=== PATIENT | male | born 1985 | race Caucasian/White ===

== ENCOUNTER 2016-09-11 13:17 | Emergency (ER) ==
[2016-09-11 13:27] VITALS: BP 147/82; TEMP 98.4; BMI 21.1
[2016-09-11] MEDS ORDERED: DILAUDID 1 MG/ML SYRINGE IM STA (13:38)
[2016-09-11] MEDS ORDERED: ZOFRAN 4 MG/2 ML IM STA (13:41)
[2016-09-11 13:58] LABS: BASOPHILS # (AUTO) 0.1 K/uL (0-0.2); BASOPHILS % (AUTO) 0.7 % (0.0-3.0); EOSINOPHILS % (AUTO) 0.1 % (0.0-7.0); HEMATOCRIT 50.6 % (42.0-52.0); HEMOGLOBIN 18.3 g/dl (14.0-18.0); IMMATURE GRANULOCYTE % (AUTO) 0.3 % (0.0-5.0); LYMPHOCYTES % (AUTO) 12.9 (10.0-50.0); MEAN CORPUSCULAR HEMOGLOBIN 31.1 pg (27.0-31.0); MEAN CORPUSCULAR HGB CONC 36.2 (31.8-35.4); MEAN CORPUSCULAR VOLUME 86.1 fl (80.0-94.0); MONOCYTES # (AUTO) 0.2 K/uL (0.4-2.0); MONOCYTES % (AUTO) 3.2 (0-10); NEUTROPHILS # (AUTO) 6.1 K/ul (2.0-6.9); NEUTROPHILS % (AUTO) 82.8; PLATELET COUNT 292 10^3/uL (140-440); RED BLOOD COUNT 5.88 10^6/ul (4.70-6.10); WHITE BLOOD COUNT 7.42 K/ul (4.2-10.2)
[2016-09-11 14:16] LABS: ALBUMIN 4.6 g/dL (3.4-5.0); ALBUMIN/GLOBULIN RATIO 1.44; ANION GAP 20.1; BILIRUBIN,TOTAL 1.34 mg/dL (0.00-1.20); BUN/CREATININE RATIO 8.08; CREATININE 0.99 mg/dL (0.60-1.10); POTASSIUM 4.1 mmol/L (3.5-5.1); TOTAL PROTEIN 7.8 g/dL (6.4-8.2)
--- NOTE | 2016-09-11 14:31 | DI ---
EXAM: Chest two view, frontal and lateral views. HISTORY: Cough. COMPARISON: None available. FINDINGS: The heart size is normal. There is no pulmonary vascular congestion. The lungs are miguel a r. No pleural effusion or pneumothorax is seen. No acute osseous abnormality identified. IMPRESSION: No acute cardiopulmonary process.
--- NOTE | 2016-09-11 14:41 | CT ---
EXAM: CT Abdomen without contrast. CT Pelvis without contrast. HISTORY: Epigastric pain. Nausea and vomiting. COMPARISON: None available. TECHNIQUE: Multiple axial images of the abdomen and pelvis were obtained without intravenous contra st. Images were reformatted in the coronal plane. FINDINGS: Please note that evaluation of the abdominal and pelvic structures is limited due to lack of intravenous contrast. The lung bases are clear. No acute osseous abnormality identified. Focal fatty infiltration seen in the medial left hepatic lobe. The gallbladder, pancreas, spleen, a drenal glands, kidneys demonstrate normal contour. No calcified renal stones or hydronephrosis dete cted. The bowel is normal in course and caliber without evidence for obstruction or inflammatory process. The appendix is normal. Urinary bladder is unremarkable. No free fluid or free air identified. N onenlarged mesenteric lymph nodes are present. There is a tiny fat-containing umbilical hernia. Flores bcutaneous air in the left gluteal region likely due to subcutaneous injection. IMPRESSION: No acute abnormality in the abdomen or pelvis.
[2016-09-11 15:01] LABS: BILIRUBIN,URINE Negative (NEGATIVE); KETONES,URINE 2+ (NEGATIVE); LEUKOCYTE ESTERASE ,URINE Negative (NEGATIVE); NITRITE,URINE Negative (NEGATIVE); PH,URINE 8.5 (5-9); PROTEIN,URINE 1+ (NEGATIVE); URINE, BLOOD Negative (NEGATIVE)
[2016-09-11 15:06] LABS: ADD URINE MICROSCOPIC YES
[2016-09-11 15:10] LABS: BACTERIA,URINE 1+ (NOT PRESENT)
[2016-09-11 15:12] LABS: COCAIN SCREEN,URINE NEGATIVE (NEGATIVE)
--- NOTE | 2016-09-11 15:31 | ED.PDOC ---
General ED Provider: Dr. [address] Chief Complaint: Abdominal Pain Stated Complaint: abdominal pain Time Seen by Physician: 13:20 (seen with nursing staff admitts to drinking alcohol on daily basis heavily) Mode of Arrival: Walk-In Information Source: Patient Exam Limitations: No limitations Primary Care Provider: MARNIE VINSON Nursing and Triage Documentation Reviewed and Agree: Yes GI Complaint Exam - Abdominal Pain Complaint/Exam Duration: since AM TODAY Symptoms Are: Still present Timing: Constant Initial Severity: Moderate Location of Pain: Epigastric Character: Reports: Cramping Aggravating: Reports: None Alleviating: Reports: None Associated Signs and Symptoms: Reports: Nausea. Denies: Diaphoresis, Fever, Cough, Chest pain, Dizziness, Back pain, Constipation, Blood in stool, Dysuria, Urinary frequency, Decreased urine output, Decreased appetite, Discharge, Vomiting, Diarrhea, Decreased activity AAA Risk Factors: Reports: None Cardiac Risk Factors: Reports: None Testicular Torsion Risk Factors: Reports: None Surgical Obstruction Risk Factors: Reports: None Related Surgical History: Reports: None Abdominal Findings: Present: None Differential Diagnoses: Bowel Obstruction, Constipation, Gastroenteritis, Pancreatitis Review of Systems - Review Of Systems Constitutional: Reports: No symptoms Eyes: Reports: No symptoms Ears, Nose, Mouth, Throat: Reports: No symptoms Respiratory: Reports: No symptoms Cardiac: Reports: No symptoms GI: Reports: Abdominal pain, Nausea : Reports: No symptoms Musculoskeletal: Reports: No symptoms Skin: Reports: No symptoms Neurological: Reports: No symptoms Endocrine: Reports: No symptoms Hematologic/Lymphatic: Reports: No symptoms All Other Systems: Reviewed and Negative Past Medical History - Past Medical History Previously Healthy: Yes Endocrine: Reports: None Cardiovascular: Reports: None Respiratory: Reports: None Hematological: Reports: None Gastrointestinal: Reports: None Genitourinary: Reports: None Neuro/Psych: Reports: None Musculoskeletal: Reports: None Cancer: Reports: None - Surgical History General Surgical History: Reports: None - Family History Family History: Reports: None - Social History Smoking Status: Former smoker Hx Substance Use: Yes Alcohol Screening: Heavy - Immunizations Tetanus Shot up to Date: No Physical Exam - Physical Exam Appearance: Well-appearing, No pain distress, Well-nourished Eyes: AUBREY, EOMI, Conjunctiva clear ENT: Ears normal, Nose normal, Oropharynx normal Respiratory: Airway patent, Breath sounds clear, Breath sounds equal, Respirations nonlabored Cardiovascular: RRR, Pulses normal, No rub, No murmur GI/: Soft, Nontender, No masses, Bowel sounds normal, No Organomegaly Musculoskeletal: Normal strength, ROM intact, No edema, No calf tenderness Skin: Warm, Dry, Normal color Neurological: Sensation intact, Motor intact, Reflexes intact, Cranial nerves intact, Alert, Oriented Psychiatric: Affect appropriate, Mood appropriate Interpretation - Radiology Interpretation Radiology Interpretation By: ED Physician Radiology Results: Negative Exam Interpreted: CXR Re-Evaluation - Re-Evaluation Time of Re-Evaluation: 15:00 Status: Improved Vital Signs Stable: Yes Pain Level: 0 Appearance: NAD Lungs: Clear Skin: Warm and Dry Neuro: Alert and Oriented X3 CV: RRR - Re-Evaluation Time of Re-Evaluation: 03:45 Status: Improved Vital Signs Stable: Yes Pain Level: 0 Appearance: NAD Skin: Warm and Dry Neuro: Alert and Oriented X3 CV: RRR Critical Care Note - Critical Care Note Total Time (mins): 0 Course - Course Hematology/Chemistry: 09/11/16 13:50 09/11/16 13:50 Orders, Labs, Meds: Lab Review 09/11/16 09/11/16 13:50 14:30 WBC 7.42 RBC 5.88 Hgb 18.3 H Hct 50.6 MCV 86.1 MCH 31.1 H MCHC 36.2 H RDW Coeff of Maylin 12.4 Plt Count 292 Immature Gran % (Auto) 0.3 Neut % (Auto) 82.8 Lymph % (Auto) 12.9 Coke % (Auto) 3.2 Eos % (Auto) 0.1 Baso % (Auto) 0.7 Immature Gran # (Auto) 0.0 Neut # 6.1 Lymph # 1.0 Coke # 0.2 L Eos # 0.0 Baso # 0.1 Sodium 141 Potassium 4.1 Chloride 98 Carbon Dioxide 27 Anion Gap 20.1 BUN 8 Creatinine 0.99 Estimated GFR (MDRD) 89.00 BUN/Creatinine Ratio 8.08 Glucose 105 H Calcium 10.0 Total Bilirubin 1.34 H AST 27 ALT 21 Alkaline Phosphatase 65 Total Protein 7.8 Albumin 4.6 Globulin 3.2 Albumin/Globulin Ratio 1.44 Amylase 41 Lipase 24 Urine Color Yellow Urine Clarity Cloudy Urine pH 8.5 Ur Specific [place] 1.015 Urine Protein 1+ Urine Glucose (UA) Negative Urine Ketones 2+ Urine Blood Negative Urine Nitrite Negative Urine Bilirubin Negative Urine Urobilinogen 4.0 Ur Leukocyte Esterase Negative Urine Microscopic RBC 0-2 Urine Microscopic WBC 0-2 Ur Squamous Epith Cells 0-2 Amorphous Sediment 2+ Urine Bacteria 1+ Urine Opiates Screen Negative Ur Oxycodone Screen Negative Urine Methadone Screen Negative Ur Propoxyphene Screen Negative Ur Barbiturates Screen Negative U Tricyclic Antidepress Negative Ur Phencyclidine Scrn Negative Ur Amphetamine Screen Negative U Methamphetamines Scrn Negative U Benzodiazepines Scrn Negative Urine Cocaine Screen Negative U Cannabinoids Screen Positive Plasma/Serum Alcohol < 10.0 Orders Category Date Time Status AMYLASE Stat LAB 09/11/16 13:50 Completed CBC W/ AUTO DIFF Stat LAB 09/11/16 13:50 Completed COMPREHENSIVE METABOLIC PANEL Stat LAB 09/11/16 13:50 Completed ETOH LEVEL [BLOOD ALCOHOL] Stat LAB 09/11/16 13:50 Completed LIPASE Stat LAB 09/11/16 13:50 Completed URINALYSIS C & S IF INDICATED Stat LAB 09/11/16 14:30 Completed URINE CULTURE Routine LAB 09/11/16 15:11 Received URINE DRUG SCREEN (RAPID FOR ED) [DRUG SCREEN, URINE, LAB 09/11/16 14:30 Completed RAPID] Stat Hydromorphone HCl [Dilaudid 1 mg/ml Syringe] MEDS 09/11/16 13:38 Discontinued 1 mg IM ONCE STA Ondansetron HCl/Pf [Zofran 4 mg/2 ml] MEDS 09/11/16 13:41 Discontinued 4 mg IM ONCE STA CHEST, 2 VIEWS PA & LAT Stat RADS 09/11/16 13:[address] ABDOMEN/PELVIS WO CONTRAST Stat RADS 09/11/16 13:38 Completed Medications Discontinued Medications Generic Name Dose Route Start Last Admin Trade Name Freq PRN Reason Stop Dose Admin Hydromorphone HCl 1 mg 09/11/16 13:38 09/11/16 15:10 Dilaudid 1 Mg/Ml Syringe IM 09/11/16 13:39 Not Given ONCE STA Ondansetron HCl 4 mg 09/11/16 13:41 09/11/16 14:07 Zofran 4 Mg/2 Ml IM 09/11/16 13:42 4 mg ONCE STA Administration Vital Signs: Temp Pulse Resp BP Pulse Ox 09/11/16 13:19 98.4 F 114 H 20 147/82 H 98 Departure - Departure Time of Disposition: 15:31 Disposition: HOME SELF-CARE Discharge Problem: Abdominal pain Condition: Good Pt referred to PMD for follow-up: Yes Additional Instructions: Please call your Family Physician as soon as possible to schedule a follow-up appointment. Allergies/Adverse Reactions: Allergies erythromycin base Adverse Reaction (Verified 09/11/16 13:30) Sulfa (Sulfonamide Antibiotics) Adverse Reaction (Verified 09/11/16 13:30) vancomycin Adverse Reaction (Verified 09/11/16 13:30) Home Medications: Ambulatory Orders 1 [No Reported Medications] 09/11/16 Disposition Discussed With: Patient
== END 2016-09-11 15:40 | disposition home or self-care (01) ==
LOC: ED 13:17
DX: R10.9 Unspecified abdominal pain (principal); R11.0 Nausea
CPT/HCPCS: 36415; 80053; 80306; 80307; 81001; 82150; 83690; 85025; 87086; 96372; 99283